=== PATIENT | female | born 1955 | race Caucasian/White ===

== ENCOUNTER 2017-11-09 10:40 | Emergency (ER) | payer MEDICARE, OTHER ==
[~2017-11-09] VITALS: Ht 162.6 cm; Wt 108.9 kg
--- NOTE | 2017-11-09 11:23 | PHYS DOC ---
Past History Past Medical History: COPD, Hypertension Past Surgical History: No Surgical History Smoking: Non-smoker Alcohol Use: None Drug Use: None Adult General Chief Complaint Chief Complaint: SHORTNESS OF BREATH HPI HPI 62-year-old female patient state she has history of COPD related to asthma without smoking and is to take 40 mg of prednisone daily with stable condition with her primary care physician suggested that she cannot take prednisone for a long time and stopped her medication about 4 months ago. Patient complaining of shortness of breath since stopping prednisone. Patient was seen symptoms hospital 1 week ago and treated with one course of Medrol Dosepak with improvement of her condition at or shortness of breath increased for the last 4 or 5 days after she finished the medication. Patient complaining of dry cough and shortness of breath that getting worse with activity and during episodes of cough without chest pain, fever and chills, nausea and vomiting, diarrhea and constipation. Patient states she used her last dose of inhaler today and needs more inhaler. Patient asking for long-term prednisone treatment. Patient was very anxious and agitated upon arrival to ER. Review of Systems Review of Systems Constitutional: Denies fever or chills [] Eyes: Denies change in visual acuity, redness, or eye pain [] HENT: Denies nasal congestion or sore throat [] Respiratory: Reports cough and shortness of breath [] Cardiovascular: No additional information not addressed in HPI [] GI: Denies abdominal pain, nausea, vomiting, bloody stools or diarrhea [] : Denies dysuria or hematuria [] Musculoskeletal: Denies back pain or joint pain [] Integument: Denies rash or skin lesions [] Neurologic: Denies headache, focal weakness or sensory changes [] Endocrine: Denies polyuria or polydipsia [] All other systems were reviewed and found to be within normal limits, except as documented in this note. Current Medications Current Medications Current Medications Medications (Trade) Dose Ordered Sig/Segundo Start Time Stop Time Status Last Admin Dose Admin Albuterol/ Ipratropium (Duoneb) 3 ml 1X ONCE 11/09/17 11:45 11/09/17 11:46 Methylprednisolone Sodium Succinate (SOLU-Medrol 125MG VIAL) 125 mg 1X ONCE 11/09/17 11:45 11/09/17 11:46 Allergies Allergies Allergies Coded Allergies Type Severity Reaction Last Updated Verified penicillin G Allergy Intermediate 11/09/17 Yes Physical Exam Physical Exam Constitutional: Well developed, well nourished, mild distress, non-toxic appearance, anxious. [] HENT: Normocephalic, atraumatic, bilateral external ears normal, oropharynx moist, no oral exudates, nose normal. [] Eyes: PERRLA, EOMI, conjunctiva normal, no discharge. [] Neck: Normal range of motion, no tenderness, supple, no stridor. [] Cardiovascular: Mild tachycardia, no murmur [] Lungs & Thorax: Mild wheezing and rhonchi bilaterally, mild respiratory distress Abdomen: Bowel sounds normal, soft, no tenderness, no masses, no pulsatile masses. [] Skin: Warm, dry, no erythema, no rash. [] Back: No tenderness, no CVA tenderness. [] Extremities: No tenderness, no cyanosis, no clubbing, ROM intact, no edema. [] Neurologic: Alert and oriented X 3, normal motor function, normal sensory function, no focal deficits noted. [] Psychologic: Affect normal, judgement normal, anxious and agitated, denies suicidal and homicidal ideation Current Patient Data Vital Signs Vital Signs Date Time Temp Pulse Resp B/P (MAP) Pulse Ox O2 Delivery O2 Flow Rate FiO2 11/09/17 11:04 98.3 104 18 95 Room Air EKG EKG [] Radiology/Procedures Radiology/Procedures [Chest x-ray was unremarkable] Course & Med Decision Making Course & Med Decision Making Pertinent Labs and Imaging studies reviewed. (See chart for details) Naren of patient in ER showed 62-year-old female patient with history of COPD without home oxygen complaining of increasing shortness of breath after stopping the prednisone. Patient also asking for prescription of Ventolin. Patient had agitation and anxiety with wheezing after treatment with nebulizer treatment and Solu-Medrol IM. Labs was unremarkable. Plan discharge patient home with diagnosis of COPD exacerbation. Patient already had a course of antibiotic and did not have sign of infection therefore plan to give prescription for Ventolin and Medrol Dosepak. [] Dragon Disclaimer Dragon Disclaimer This electronic medical record was generated, in whole or in part, using a voice recognition dictation system. Departure Departure: Impression: Primary Impression: COPD exacerbation Additional Impression: Anxiety Disposition: 01 HOME, SELF-CARE (at 12:30) Condition: IMPROVED Referrals: ABHIJEET BAR DO (PCP) Patient Instructions: Chronic Obstructive Pulmonary Disease Exacerbation Additional Instructions: Follow-up with your primary care physician in 3-5 days Return to ER if not feeling better Scripts Albuterol Sulfate (VENTOLIN HFA INHALER) 18 Gm Hfa.aer.ad 2 PUFF IH PRN Q4HRS Y for FOR ASTHMA, #1 INHALER 0 Refills Prov: JASMEET RODRIGUEZ MD 11/09/17 Methylprednisolone (MEDROL) 4 Mg Tab.ds.pk 1 PKG PO UD, #1 PKG Prov: JASMEET RODRIGUEZ MD 11/09/17 Problem Qualifiers JASMEET RODRIGUEZ MD Nov 09, 2017 11:23
[2017-11-09] MEDS ORDERED: methylPREDNISolone SOD SUCC PF 125 MG/2 ML VIAL. IV ONE (11:45)
[2017-11-09] MEDS ORDERED: IPRATRPIUM/ALBUTEROL 0.5/2.5MG 3 ML NEBU. NEB ONE (11:45)
[2017-11-09 11:50] LABS: BASO # 0.1 x10^3/uL (0.0-0.2); BASO % 1 % (0-3); EOS # 0.9 x10^3/uL (0.0-0.7); EOS % 10 % (0-3); HEMATOCRIT 42.9 % (36.0-47.0); HEMOGLOBIN 14.1 g/dL (12.0-15.5); LYMPH # 1.6 x10^3/uL (1.0-4.8); LYMPH % 18 % (24-48); MEAN CORPUSCULAR HEMOGLOBIN 26 pg (25-35); MEAN CORPUSCULAR HGB CONC 33 g/dL (31-37); MEAN CORPUSCULAR VOLUME 81 fL (79-100); MONO # 0.6 x10^3/uL (0.0-1.1); MONO % 7 % (0-9); NEUT # 5.7 x10^3uL (1.8-7.7); NEUT % 64 % (31-73); PLATELET COUNT 318 x10^3/uL (140-400); RED BLOOD COUNT 5.33 x10^6/uL (3.50-5.40); RED CELL DISTRIBUTION WIDTH 14.7 % (11.5-14.5); WHITE BLOOD COUNT 8.9 x10^3/uL (4.0-11.0)
--- NOTE | 2017-11-09 12:00 | RAD ---
PA and lateral chest radiographs 11/09/2017 Clinical history: Shortness of breath. PA and lateral digital radiographs of the chest were obtained. Comparison study is dated 01/30/2015. The cardiac silhouette is normal in size. The thoracic aorta is minimally tortuous. Atherosclerotic calcification of the thoracic aorta is seen. No acute pulmonary infiltrate is noted. No pneumothorax or pleural effusion is seen. Degenerative changes are seen involving the thoracic spine. Impression: No acute abnormality seen.
[2017-11-09 12:04] LABS: ALBUMIN 3.8 g/dL (3.4-5.0); CALCIUM 9.4 mg/dL (8.5-10.1); CREATININE 0.7 mg/dL (0.6-1.0); GFR 84.8; POTASSIUM 4.2 mmol/L (3.5-5.1); TOTAL BILIRUBIN 0.5 mg/dL (0.2-1.0); TOTAL PROTEIN 7.7 g/dL (6.4-8.2)
[2017-11-09] MEDS ORDERED: ALBU18HF IH (12:33)
[2017-11-09] MEDS ORDERED: METH4TAB2 PO (12:33)
[2017-11-09 12:42] VITALS: BP 134/80
== END 2017-11-09 14:14 | disposition home or self-care (01) ==
LOC: ER 10:40
DX: J44.1 Chronic obstructive pulmonary disease with (acute) exacerbation (principal); F41.9 Anxiety disorder, unspecified; I10 Essential (primary) hypertension; Z88.0 Allergy status to penicillin
CPT/HCPCS: 36415; 71020; 80053; 83880; 84484; 85025; 94640; 96374; 99285; J2930; J7620

== ENCOUNTER 2017-12-02 11:02 | Emergency (ER) | payer MEDICARE, OTHER ==
[~2017-12-02] VITALS: Ht 167.6 cm; Wt 81.2 kg
[~2017-12-02 11:02] MED LIST: ALBU18HF IH; METH4TAB2 PO
--- NOTE | 2017-12-02 11:17 | PHYS DOC ---
Past History Past Medical History: COPD, Hypertension Past Surgical History: No Surgical History Smoking: Non-smoker Alcohol Use: None Drug Use: None Adult General Chief Complaint Chief Complaint: shortness of breath HPI HPI Patient is a 62 year old F who presents with shortness of breath over the past month. She denies any other associated symptoms. She feels that her symptoms are worse with activity and improved with rest. She does have a history of COPD but is not currently following with primary care doctor because she believes all the doctors are "stupid". Review of Systems Review of Systems Constitutional: Denies fever or chills [] Eyes: Denies change in visual acuity, redness, or eye pain [] HENT: Denies nasal congestion or sore throat [] Respiratory: Negative except history of present illness Cardiovascular: No additional information not addressed in HPI [] GI: Denies abdominal pain, nausea, vomiting, bloody stools or diarrhea [] : Denies dysuria or hematuria [] Musculoskeletal: Denies back pain or joint pain [] Integument: Denies rash or skin lesions [] Neurologic: Denies headache, focal weakness or sensory changes [] Endocrine: Denies polyuria or polydipsia [] All other systems were reviewed and found to be within normal limits, except as documented in this note. Family History Family History No pertinent medical history was reported Current Medications Current Medications Current medications were reviewed Allergies Allergies Allergies Coded Allergies Type Severity Reaction Last Updated Verified penicillin G Allergy Intermediate 11/09/17 Yes Physical Exam Physical Exam Constitutional: Well developed, well nourished, no acute distress, non-toxic appearance. [] HENT: Normocephalic, atraumatic, Eyes: EOMI, conjunctiva normal, no discharge. [] Neck: Normal range of motion, no tenderness, supple, no stridor. [] Cardiovascular:Heart rate regular rhythm, Lungs & Thorax: Diminished breath sounds bilaterally with prolonged expiratory phase. Minimal wheezing noted Abdomen: Bowel sounds normal, soft, no tenderness, no masses, no pulsatile masses. [] Skin: Warm, dry, no erythema, no rash. [] Back: No tenderness, no CVA tenderness. [] Extremities: No tenderness, no cyanosis, no clubbing, ROM intact, no edema. [] Neurologic: Alert and oriented X 3, normal motor function, normal sensory function, no focal deficits noted. [] Psychologic: Affect normal, judgement normal, mood normal. [] Current Patient Data Vital Signs Vital Signs Date Time Temp Pulse Resp B/P (MAP) Pulse Ox O2 Delivery O2 Flow Rate FiO2 12/02/17 11:21 99.1 95 22 99 Room Air EKG EKG [] Radiology/Procedures Radiology/Procedures Labs and imaging were declined Course & Med Decision Making Course & Med Decision Making Pertinent Labs and Imaging studies reviewed. (See chart for details) [] Dragon Disclaimer Dragon Disclaimer This electronic medical record was generated, in whole or in part, using a voice recognition dictation system. Departure Departure: Impression: Primary Impression: COPD exacerbation Disposition: HOME, SELF-CARE Condition: STABLE Referrals: PCPCONNER (PCP) Patient Instructions: Bronchitis Additional Instructions: Bonnie was seen in the emergency department for cough and shortness of breath. No emergency medical condition was found on history or physical exam. She was given a prescription for an oral steroid to be used only if her symptoms worsen. She is advised follow-up with her primary care doctor in the next 3-5 days for further management. Scripts Methylprednisolone (MEDROL) 4 Mg Tab.ds.pk 1 PKG PO UD, #1 PKG Prov: BARBARA ENNIS MD 12/02/17 BARBARA ENNIS MD Dec 02, 2017 11:17
[2017-12-02] MEDS ORDERED: METH4TAB2 PO (12:24)
[2017-12-02 12:36] VITALS: BP 152/80
== END 2017-12-02 12:38 | disposition home or self-care (01) ==
LOC: ER 11:02
DX: J44.1 Chronic obstructive pulmonary disease with (acute) exacerbation (principal); I10 Essential (primary) hypertension; Z88.0 Allergy status to penicillin
CPT/HCPCS: 99283

== ENCOUNTER 2018-05-08 11:28 | Emergency (ER) | payer MEDICARE, OTHER ==
[~2018-05-08] VITALS: Ht 152.4 cm; Wt 77.1 kg
[2018-05-08] MEDS ORDERED: DIPHTH,PERTUSS(ACELL),TET TOX 0.5 ML DISP.SYRIN. VAX IM ONE (11:45)
[2018-05-08] MEDS ORDERED: CLIN300C8 PO (11:54)
--- NOTE | 2018-05-08 11:56 | PHYS DOC ---
Past History Past Medical History: COPD, Hypertension Past Surgical History: No Surgical History Smoking: Non-smoker Alcohol Use: None Drug Use: None Adult General Chief Complaint Chief Complaint: ANIMAL BITE [facility] HPI Patient is a 63-year-old female who presents for evaluation after a cat bite which she sustained around 3 AM today. She states that she is to house that were fighting and she tried to break it up and she was been on the left forearm. She states that the cats stay inside the house and has been behaving normally and although they are not up-to-date with her immunizations she does not want to be treated for rabies. I explained to her that even house cats without any symptoms can potentially have rabies and she expresses verbal understanding but does not want to be vaccinated. She thinks that her last tetanus shot was about 5 years ago and is willing to accept this today. She has no other complaints this time. She has no pain with moving the left hand, wrist , forearm or elbow. She did not fall or hurt anything else. She is alert and oriented 4, calm, appears to be no distress.. Review of Systems Review of Systems Constitutional: Denies fever or chills [] Eyes: Denies change in visual acuity, redness, or eye pain [] HENT: Denies nasal congestion or sore throat [] Respiratory: Denies cough or shortness of breath [] Cardiovascular: No additional information not addressed in [facility] [] GI: Denies abdominal pain, nausea, vomiting, bloody stools or diarrhea [] : Denies dysuria or hematuria [] Musculoskeletal: Denies back pain[] left forearm/wrist cat bite/contusion Integument: Denies rash or skin lesions [] Neurologic: Denies headache, focal weakness or sensory changes [] Endocrine: Denies polyuria or polydipsia [] All other systems were reviewed and found to be within normal limits, except as documented in this note. Allergies Allergies Allergies Coded Allergies Type Severity Reaction Last Updated Verified penicillin G Allergy Intermediate 11/09/17 Yes Physical Exam Physical Exam Constitutional: Well developed, well nourished, no acute distress, non-toxic appearance. [] HENT: Normocephalic, atraumatic, bilateral external ears normal, oropharynx moist, no oral exudates, nose normal. [] Eyes: PERRLA, EOMI, conjunctiva normal, no discharge. [] Neck: Normal range of motion, no tenderness, supple, no stridor. [] Cardiovascular:Heart rate regular rhythm, no murmur [] Lungs & Thorax: Bilateral breath sounds clear to auscultation [] Abdomen: Bowel sounds normal, soft, no tenderness, no masses, no pulsatile masses. [] Skin: Warm, dry, no erythema, no rash. [] Back: No tenderness, no CVA tenderness. [] Extremities: no cyanosis, no clubbing, ROM intact, no edema. [] +contusion to left distal forearm/wrist, no open wound, no obvious puncture wound, no bleeding , + ecchymosis, no bony tenderness, FROM present Neurologic: Alert and oriented X 3, normal motor function, normal sensory function, no focal deficits noted. [] Psychologic: Affect normal, judgement normal, mood normal. [] EKG EKG [] Radiology/Procedures Radiology/Procedures [] Course & Med Decision Making Course & Med Decision Making Pertinent Labs and Imaging studies reviewed. (See chart for details) Explained to the patient that although her cancer behaving normally and live inside there is a remote possibility could be rabies positive for showing overt typical signs of rabies. She expresses verbal understanding but does not will be treated for rabies. Advised the patient to get her cats up-to-date with rabies vaccination. The atient will go home with a prescription for clindamycin and will follow up with her primary care physician in the next 2-3 days. Dragon Disclaimer Dragon Disclaimer This electronic medical record was generated, in whole or in part, using a voice recognition dictation system. Departure Departure: Impression: Primary Impression: Cat bite Additional Impression: Contusion of forearm, left Disposition: 01 HOME, SELF-CARE Condition: STABLE Referrals: LAVONNE AVILES MD (PCP) Patient Instructions: Animal Bite, Rabies Additional Instructions: Take the prescribed antibiotics as directed. Follow-up with your primary care physician in the next 2-3 days. Rabies vaccine and treatment was offered but declined today. If you change your mind please return. Return to the ER for new or worsening symptoms Scripts Clindamycin Hcl (CLINDAMYCIN HCL) 300 Mg Capsule 1 CAP PO TID for 10 Days, #30 CAP Prov: CAIN HERNANDEZ DO 05/08/18 Problem Qualifiers CAIN HERNANDEZ DO May 08, 2018 11:56
[2018-05-08 12:02] VITALS: BP 151/81
== END 2018-05-08 12:05 | disposition home or self-care (01) ==
LOC: ER 11:28
DX: S51.852A Open bite of left forearm, initial encounter (principal); S50.12XA Contusion of left forearm, initial encounter; J44.9 Chronic obstructive pulmonary disease, unspecified; I10 Essential (primary) hypertension; Z88.0 Allergy status to penicillin; W55.01XA Bitten by cat, initial encounter; Y93.89 Activity, other specified; Y99.8 Other external cause status; Y92.89 Other specified places as the place of occurrence of the external cause
CPT/HCPCS: 90471; 90715; 99283-25

== ENCOUNTER 2019-06-25 10:07 | Emergency (ER) | payer OTHER ==
[~2019-06-25] VITALS: Ht 152.4 cm; Wt 77.1 kg
[~2019-06-25 10:07] MED LIST changes: -ALBU18HF IH; +ALBU2.5V8 IH; +CLIN300C8 PO
--- NOTE | 2019-06-25 10:26 | PHYS DOC ---
Past History Past Medical History: COPD, GERD, Hypertension Past Surgical History: Tonsillectomy, Other Smoking: Non-smoker Alcohol Use: None Drug Use: None Adult General Chief Complaint Chief Complaint: SHORTNESS OF BREATH HPI HPI Patient is a 64-year-old female presents with shortness of breath. Symptoms st arted approximately 2 weeks ago that have become worse over the past several days. She has had no improvement with her home long-acting as well as short acting beta agonist inhalers. She does have a known history of COPD. Was never a smoker. Denies any fever. Reports that she has had a cough that has not been productive. She notes there has been a rattle in her chest that has gone away. She reports steroids normally improve these symptoms. Reports increasing shortness of breath with laying down. Also increasing shortness of breath with exertion. Denies any chest pain or palpitations. Denies any extremity swelling. Denies any recent travel no trauma, no stasis, no known hypercoagulable state.[] Review of Systems Review of Systems Constitutional: Denies fever or chills [] Eyes: Denies change in visual acuity, redness, or eye pain [] HENT: Denies nasal congestion or sore throat [] Respiratory: See history of present illness[] Cardiovascular: No chest pain or palpitations[] GI: Denies abdominal pain, nausea, vomiting, bloody stools or diarrhea [] : Denies dysuria or hematuria [] Musculoskeletal: Denies back pain or joint pain [] Integument: Denies rash or skin lesions [] Neurologic: Denies headache, focal weakness or sensory changes [] Endocrine: Denies polyuria or polydipsia [] All other systems were reviewed and found to be within normal limits, except as documented in this note. Allergies Allergies Allergies Coded Allergies Type Severity Reaction Last Updated Verified penicillin G Allergy Intermediate 11/09/17 Yes Physical Exam Physical Exam Constitutional: Well developed, well nourished, no acute distress, non-toxic appearance. [] HENT: Normocephalic, atraumatic, bilateral external ears normal, oropharynx moist, no oral exudates, nose normal. [] Eyes: PERRLA, EOMI, conjunctiva normal, no discharge. [] Neck: Normal range of motion, no tenderness, supple, no stridor. [] Cardiovascular:Heart rate is tachycardic with a regular rhythm, no murmur [] Lungs & Thorax: Diminished throughout[] Abdomen: Bowel sounds normal, soft, no tenderness, no masses, no pulsatile masses. [] Skin: Warm, dry, no erythema, no rash. [] Back: No tenderness, no CVA tenderness. [] Extremities: No tenderness, no cyanosis, no clubbing, ROM intact, no edema. [] Neurologic: Alert and oriented X 3, normal motor function, normal sensory function, no focal deficits noted. [] Psychologic: Affect normal, judgement normal, mood normal. [] EKG EKG EKG shows a sinus tachycardia at 109 bpm, normal axis, QTC of 411 ms, no ST elevation. Nonspecific ST-T wave changes. Interpreted by me at 1040[] Radiology/Procedures Radiology/Procedures PROCEDURE: CHEST PA & LATERAL CHEST PA LATERAL History: Shortness of breath Comparison: November 09, 2017 Findings: No consolidation or pleural effusion. Normal heart size. Impression: 1. No acute cardiopulmonary process.[] Course & Med Decision Making Course & Med Decision Making Pertinent Labs and Imaging studies reviewed. (See chart for details) ED course: Patient arrived, was placed in bed, and tolerated exam well. Patient refused IV access so medication was administered orally. Her lungs improved significantly after the breathing treatment. Her heart rate improved to the 80s. She was speaking in full sentences. She was transported to and from radiology with any complications. After the return of laboratory and imaging findings, these were discussed with the patient voiced understanding. All questions were answered. She was discharged in improved condition. Medical decision making: This appears to be a COPD exacerbation. There is no evidence pneumonia, pneumothorax, pulmonary embolism, nor acute coronary syndrome.[] Dragon Disclaimer Dragon Disclaimer This electronic medical record was generated, in whole or in part, using a voice recognition dictation system. Departure Departure: Impression: Primary Impression: COPD exacerbation Disposition: HOME, SELF-CARE Condition: IMPROVED Referrals: LAVONNE AVILES MD (PCP) Follow-up in 2 days Patient Instructions: Chronic Obstructive Pulmonary Disease Exacerbation Additional Instructions: Follow-up with your regular doctor in 2 days. Return to the ER if worsening difficulty breathing or any other concerns. Scripts Ipratropium Shunk (ATROVENT HFA) 12.9 Gm Hfa.aer.ad 2 PUFF IH QID for COPD, #12.9 GM 0 Refills Prov: LUCIANA GE DO 06/25/19 Prednisone (PREDNISONE) 50 Mg Tablet 1 TAB PO DAILY for INFLAMMATION, #5 TAB Prov: LUCIANA GE DO 06/25/19 Albuterol Sulfate (VENTOLIN HFA INHALER) 18 Gm Hfa.aer.ad 2 PUFF IH PRN Q4HRS PRN for FOR ASTHMA, #1 INHALER 0 Refills Prov: LUCIANA GE DO 06/25/19 LUCIANA GE DO Jun 25, 2019 10:26
[2019-06-25] MEDS ORDERED: methylPREDNISolone SOD SUCC PF 125 MG/2 ML VIAL. IV ONE (10:30)
[2019-06-25] MEDS ORDERED: IPRATRPIUM/ALBUTEROL 0.5/2.5MG 3 ML NEBU. NEB ONE (10:45)
[2019-06-25] MEDS ORDERED: predniSONE 10 MG TABLET PO ONE (10:50)
[2019-06-25 11:11] LABS: ALBUMIN 3.9 g/dL (3.4-5.0); ALBUMIN/GLOBULIN RATIO 1.1 (1.0-1.7); CREATININE 0.8 mg/dL (0.6-1.0); GFR 72.2; POTASSIUM 3.9 mmol/L (3.5-5.1); TOTAL BILIRUBIN 0.7 mg/dL (0.2-1.0); TOTAL PROTEIN 7.5 g/dL (6.4-8.2)
[2019-06-25 11:13] VITALS: BP 140/81
--- NOTE | 2019-06-25 11:17 | RAD ---
CHEST PA LATERAL History: Shortness of breath Comparison: November 09, 2017 Findings: No consolidation or pleural effusion. Normal heart size. Impression: 1. No acute cardiopulmonary process. Electronically signed by: Remington Cruz DO (06/25/2019 11:14 AM) [id number]
[2019-06-25] MEDS ORDERED: PRED50TA PO (11:42)
[2019-06-25] MEDS ORDERED: ALBU2.5V8 IH (11:42)
[2019-06-25] MEDS ORDERED: IPRA12.9 IH (11:42)
--- NOTE | 2019-06-25 14:52 | EKG ---
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
== END 2019-06-25 11:46 | disposition home or self-care (01) ==
LOC: ER 10:07
DX: J44.1 Chronic obstructive pulmonary disease with (acute) exacerbation (principal); K21.9 Gastro-esophageal reflux disease without esophagitis; I10 Essential (primary) hypertension; Z88.0 Allergy status to penicillin
CPT/HCPCS: 36415; 71046; 80053; 83880; 84484; 85379; 93005; 94640; 99285; J7512; J7620

== ENCOUNTER 2019-08-16 10:11 | Emergency (ER) | payer OTHER ==
[~2019-08-16] VITALS: Ht 152.4 cm; Wt 71.7 kg
[~2019-08-16 10:11] MED LIST changes: +IPRA12.9 IH; +PRED50TA PO
[2019-08-16 10:27] VITALS: BP 161/75
--- NOTE | 2019-08-16 10:36 | PHYS DOC ---
Past History Past Medical History: COPD, Diabetes, GERD, Hypertension Past Surgical History: Tonsillectomy, Other Smoking: Non-smoker Alcohol Use: None Drug Use: None Adult General Chief Complaint Chief Complaint: COUGH HPI HPI Patient is a 64-year-old female who presents with complaint of productive cough for the last few days. She does have history of COPD and is wanting to make sure that it is not turning into a pneumonia. She denies any fever or chest pain. She also denies any shortness of breath. Patient states that she also has purulent nasal discharge for the last few days. Patient states that nothing is improving her symptoms.[] Review of Systems Review of Systems Constitutional: Denies fever or chills [] HENT: Positive nasal congestion[] Respiratory: Positive productive cough without shortness of breath [] Cardiovascular: No additional information not addressed in HPI [] Neurologic: Denies headache, focal weakness or sensory changes [] Allergies Allergies Allergies Coded Allergies Type Severity Reaction Last Updated Verified penicillin G Allergy Intermediate 11/09/17 Yes Physical Exam Physical Exam Constitutional: Well developed, well nourished, no acute distress, non-toxic appearance. [] Cardiovascular:Heart rate regular rhythm, no murmur [] Lungs & Thorax: Fine rhonchi are noted bilaterally to auscultation [] Skin: Warm, dry, no erythema, no rash. [] Neurologic: Alert and oriented X 3, no focal deficits noted. [] Current Patient Data Vital Signs Vital Signs Date Time Temp Pulse Resp B/P (MAP) Pulse Ox O2 Delivery O2 Flow Rate FiO2 08/16/19 10:27 98.1 83 18 98 Room Air EKG EKG [] Radiology/Procedures Radiology/Procedures [] Course & Med Decision Making Course & Med Decision Making Pertinent Labs and Imaging studies reviewed. (See chart for details) [] Dragon Disclaimer Dragon Disclaimer This electronic medical record was generated, in whole or in part, using a voice recognition dictation system. Departure Departure: Impression: Primary Impression: Bronchitis Disposition: 01 HOME, SELF-CARE Condition: STABLE Referrals: BARBARA CASILLAS MD (PCP) Patient Instructions: Acute Bronchitis Scripts Hydrocodone/Chlorphen Polis (HYDROCODONE-CHLORPHENIRAM SUSP) 5 Ml Evonne.er.12h 5 ML PO PRN Q12HR PRN for COUGH, #60 ML 0 Refills Prov: MEDARDO JONES Jr. DO 08/16/19 Azithromycin (ZITHROMAX) 250 Mg Tablet 1 PKG PO UD for infection, #6 TAB Prov: MEDARDO JONES Jr. DO 08/16/19 MEDARDO JONES Jr. DO Aug 16, 2019 10:36
[2019-08-16] MEDS ORDERED: HYDR5SUS PO (11:18)
[2019-08-16] MEDS ORDERED: AZIT250T PO (11:18)
--- NOTE | 2019-08-16 11:24 | RAD ---
CHEST PA LATERAL History: Cough Comparison: 06/25/2019 to the chest x-ray exam. Findings: Frontal and lateral views of chest were obtained. The cardiomediastinal silhouette is normal. Pulmonary vasculature is normal. The lungs are clear. No pleural effusion or pneumothorax is seen. There is no acute bone abnormality. IMPRESSION: No acute cardiopulmonary process. Electronically signed by: Edmund Jaramillo MD (08/16/2019 11:21 AM) [facility]
[2019-08-16] MEDS ORDERED: AZITHROMYCIN 250 MG TABLET. PO ONE (11:45)
== END 2019-08-16 11:26 | disposition home or self-care (01) ==
LOC: ER 10:11
DX: J44.9 Chronic obstructive pulmonary disease, unspecified (principal); E11.9 Type 2 diabetes mellitus without complications; K21.9 Gastro-esophageal reflux disease without esophagitis; I10 Essential (primary) hypertension; Z90.89 Acquired absence of other organs; Z88.0 Allergy status to penicillin
CPT/HCPCS: 71046; 99284; J0456

== ENCOUNTER 2019-11-29 13:35 | Emergency (ER) | payer OTHER ==
[~2019-11-29] VITALS: Ht 152.4 cm; Wt 71.7 kg
[~2019-11-29 13:35] MED LIST changes: +AZIT250T PO; +HYDR5SUS PO
--- NOTE | 2019-11-29 14:31 | RAD ---
CHEST PA LATERAL History: Cough for a week Comparison: None. Findings: Frontal and lateral views of the chest were obtained. The cardiomediastinal silhouette is normal. Pulmonary vasculature is normal. The lungs are clear. No pleural effusion or pneumothorax is seen. There is no acute bone abnormality. IMPRESSION: No acute cardiopulmonary process. Electronically signed by: Edmund Jaramillo MD (11/29/2019 2:28 PM) [facility]
--- NOTE | 2019-11-29 14:37 | PHYS DOC ---
Past History Past Medical History: COPD, Diabetes, GERD, Hypertension Past Surgical History: Tonsillectomy, Other Smoking: Non-smoker Alcohol Use: None Drug Use: None Adult General Chief Complaint Chief Complaint: COUGH HPI HPI Patient is a 64-year-old female who presented to ER today for evaluation of cough for over 2 weeks. Patient is a smoker, she denies any fever. She continues to smoke. Patient denies any chest pain, no abdominal pain, no nausea vomiting. She has history hypertension, she had not taken her medication today. All other ROS is negative unless otherwise noted in HPI Review of Systems Review of Systems See above Allergies Allergies Allergies Coded Allergies Type Severity Reaction Last Updated Verified penicillin G Allergy Intermediate 11/09/17 Yes Physical Exam Physical Exam See above Constitutional: Well developed, well nourished, no acute distress, non-toxic appearance. [] HENT: Normocephalic, atraumatic, bilateral external ears normal, oropharynx moist, no oral exudates, nose normal. [] Eyes: PERRLA, EOMI, conjunctiva normal, no discharge. [] Neck: Normal range of motion, no tenderness, supple, no stridor. [] Cardiovascular:Heart rate regular rhythm, no murmur [] Lungs & Thorax: mild expiratory wheezing on examination Abdomen: Bowel sounds normal, soft, no tenderness, no masses, no pulsatile masses. [] Skin: Warm, dry, no erythema, no rash. [] Back: No tenderness, no CVA tenderness. [] Extremities: No tenderness, no cyanosis, no clubbing, ROM intact, no edema. [] Neurologic: Alert and oriented X 3, normal motor function, normal sensory functi on, no focal deficits noted. [] Psychologic: Affect normal, judgement normal, mood normal. [] Current Patient Data Vital Signs Vital Signs Date Time Temp Pulse Resp B/P (MAP) Pulse Ox O2 Delivery O2 Flow Rate FiO2 11/29/19 13:54 98.0 89 18 98 Room Air EKG EKG [] Radiology/Procedures Radiology/Procedures [][address] [address] IMAGING REPORT Signed PATIENT: RAUL KNOWLES ACCOUNT: [id number] : 1955 LOCATION: ER AGE: 64 SEX: F EXAM STATUS: REG ER ORD. PHYSICIAN: BARBARA CUNHA DO REASON: COUGH FOR A WEEK PROCEDURE: CHEST PA & LATERAL CHEST PA LATERAL History: Cough for a week Comparison: None. Findings: Frontal and lateral views of the chest were obtained. The cardiomediastinal silhouette is normal. Pulmonary vasculature is normal. The lungs are clear. No pleural effusion or pneumothorax is seen. There is no acute bone abnormality. IMPRESSION: No acute cardiopulmonary process. Electronically signed by: Edmund Zamorano MD (11/29/2019 2:28 PM) [facility] DICTATED AND SIGNED BY: EDMUND ZAMORANO MD DATE: 11/29/19 1428 CC: PCP,CONNER; BARBARA CUNHA DO ~ Course & Med Decision Making Course & Med Decision Making Pertinent Labs and Imaging studies reviewed. (See chart for details) She is a 64-year-old female who is a smoker, presented to ER today for 2 weeks history of cough, patient chest x-ray did not show pneumonia, she is diagnosed with bronchitis. Patient will be discharged home with cough medication, steroids, albuterol inhaler, and Zithromax. Dragon Disclaimer Dragon Disclaimer This electronic medical record was generated, in whole or in part, using a voice recognition dictation system. Departure Departure: Impression: Primary Impression: Bronchitis Disposition: HOME, SELF-CARE Condition: STABLE Referrals: [facility] (PCP) PLEASE FOLLOW UP WITH YOUR DOCTOR ON TUESDAY FOR REEVALUATION. RETURN IF YOU HAVE CHEST PAIN OR WORSEN SHORTNESS OF AIR. Patient Instructions: Acute Bronchitis Scripts Promethazine HCl/Codeine (Prometh-Codein 6.25-10 mg/5 ml) 5 Ml Syrup 5 ML PO PRN Q6HRS PRN for cough MDD 30 Milliliter(s), #120 ML 0 Refills Prov: BARBARA CUNHA DO 11/29/19 Albuterol Sulfate (PROAIR HFA INHALER) 8.5 Gm Hfa.aer.ad 1 PUFF INH PRN Q6HRS PRN for SHORTNESS OF BREATH for 21 Days, #1 INHALER 0 Refills Prov: BARBARA CUNHA DO 11/29/19 Albuterol Sulfate (PROAIR HFA INHALER) 8.5 Gm Hfa.aer.ad 2 PUFF IH PRN Q4-6HRS PRN for wheezing for 21 Days, #1 INHALER 0 Refills Prov: BARBARA CNUHA DO 11/29/19 Prednisone (PREDNISONE) 20 Mg Tablet 1 TAB PO DAILY for BRONCHITIS for 10 Days, #10 TAB Prov: BARBARA CUNHA DO 11/29/19 Azithromycin (ZITHROMAX) 250 Mg Tablet 1 PKG PO UD for BRONCHITIS, #6 TAB Prov: BARBARA CUNHA DO 11/29/19 BARBARA CUNHA DO Nov 29, 2019 14:37
[2019-11-29 15:16] VITALS: BP 167/86
[2019-11-29] MEDS ORDERED: PRED20TA PO (15:23)
[2019-11-29] MEDS ORDERED: ALBU2.5V8 IH (15:23)
[2019-11-29] MEDS ORDERED: PROM5SYR2 PO (15:23)
[2019-11-29] MEDS ORDERED: ALBU2.5V8 INH (15:23)
[2019-11-29] MEDS ORDERED: AZIT250T PO (15:23)
== END 2019-11-29 15:31 | disposition home or self-care (01) ==
LOC: ER 13:35
DX: J44.9 Chronic obstructive pulmonary disease, unspecified (principal); E11.9 Type 2 diabetes mellitus without complications; K21.9 Gastro-esophageal reflux disease without esophagitis; I10 Essential (primary) hypertension; Z90.89 Acquired absence of other organs; Z88.0 Allergy status to penicillin
CPT/HCPCS: 71046; 99284

== ENCOUNTER 2020-10-19 14:16 | Emergency (ER) | payer OTHER ==
[~2020-10-19] VITALS: Ht 152.4 cm; Wt 75.0 kg
[~2020-10-19 14:16] MED LIST changes: +ALBU2.5V8 INH; +PRED20TA PO; +PROM5SYR2 PO
[2020-10-19 14:31] VITALS: BP 167/90
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
[2020-10-19] MEDS ORDERED: ACETAMINOPHEN 500 MG TABLET PO ONE (15:00)
--- NOTE | 2020-10-19 15:40 | RAD ---
Right knee 4 views. HISTORY: Fall, patellar pain, trauma 4 views were taken of the right knee. There is mild arthritis with mild spurring in the medial joint compartment and mild joint space narrowing medially. There is no acute fracture. There is no joint effusion. IMPRESSION: 1. Mild arthritis in the right knee. 2. No fracture or other acute osseous abnormality. Electronically signed by: Panda Dalton MD (10/19/2020 3:37 PM) [facility]
--- NOTE | 2020-10-19 16:04 | RAD ---
EXAM: CT Head without IV contrast INDICATION: Reason: FALL, TRAUMA, HEAD PAIN, MIDLINE SPINAL CERVICAL AND THORACIC TANYA / Spl. Instructions: / History: TECHNIQUE: Multi-detector row CT images were obtained of the head without the use of IV contrast. All CT scans performed at this facility utilize dose optimization techniques as appropriate to the exam, including the following: Automated exposure control and adjustment of the mA and/or KV according to patient size (this includes techniques or standardized protocols for targeted exams where dose is indication/reason for exam). COMPARISON: None FINDINGS: BRAIN PARENCHYMA: No evidence of acute intraparenchymal hemorrhage or infarct. No abnormal parenchymal density or mass. VENTRICLES & EXTRA-AXIAL SPACES: Ventricles are within normal limits. Basilar cisterns are patent. No pathologic extra-axial fluid collection or mass. ORBITS: Orbital contents are unremarkable. SINUSES: Visualized paranasal sinuses and mastoid air cells are clear. OSSEOUS & SOFT TISSUES: Calvarium and skull base are intact. IMPRESSION: No acute intracranial pathology. EXAM: CT Cervical Spine without IV contrast INDICATION: Reason: FALL, TRAUMA, HEAD PAIN, MIDLINE SPINAL CERVICAL AND THORACIC TANYA / Spl. Instructions: / History: TECHNIQUE: Multi-detector row CT images were obtained through the cervical spine without the use of IV contrast. Post-processing sagittal and coronal reconstructed images were obtained for interpretation. All CT scans performed at this facility utilize dose optimization techniques as appropriate to the exam, including the following: Automated exposure control and adjustment of the mA and/or KV according to patient size (this includes techniques or standardized protocols for targeted exams where dose is indication/reason for exam) COMPARISON: None FINDINGS: CRANIOCERVICAL JUNCTION: Unremarkable. ALIGNMENT: Alignment is within normal limits. OSSEOUS: No evidence of fracture or bone destruction. DISC SPACES: Mild disc protrusion at C3-C4 and lesser extent C4-C5 minimally flattens the ventral thecal sac but results in no significant central canal stenosis. FACET JOINTS: Unremarkable. SPINAL CANAL: Unremarkable. NEUROFORAMINA: Unremarkable. SOFT TISSUES: Unremarkable. IMPRESSION: Mild cervical spinal degenerative spondylosis. No acute traumatic findings. EXAM: CT Thoracic Spine without IV contrast INDICATION: Reason: FALL, TRAUMA, HEAD PAIN, MIDLINE SPINAL CERVICAL AND THORACIC TANYA / Spl. Instructions: / History: TECHNIQUE: Multi-detector row CT images were obtained through the thoracic spine without the use of IV contrast. Post-processing sagittal and coronal reconstructed images were obtained for interpretation. All CT scans performed at this facility utilize dose optimization techniques as appropriate to the exam, including the following: Automated exposure control and adjustment of the mA and/or KV according to patient size (this includes techniques or standardized protocols for targeted exams where dose is indication/reason for exam). COMPARISON: None FINDINGS: ALIGNMENT: Alignment is within normal limits. OSSEOUS: No evidence of fracture or bone destruction. DISC SPACES: Mild anterior endplate osteophytic spurring and vacuum phenomenon at multiple levels in the thoracic spine with disc space narrowing, compatible with mild degenerative changes. These are most conspicuous between T5-T6 and T11-T12 FACET JOINTS: Unremarkable. SPINAL CANAL: Unremarkable. NEUROFORAMINA: Unremarkable. SOFT TISSUES: Unremarkable. IMPRESSION: No acute traumatic findings in the thoracic spine on CT. Electronically signed by: Flip Moran MD (10/19/2020 4:01 PM) [id number]
== END 2020-10-19 16:47 | disposition home or self-care (01) ==
LOC: ER 14:16
DX: S16.1XXA Strain of muscle, fascia and tendon at neck level, initial encounter (principal); S29.012A Strain of muscle and tendon of back wall of thorax, initial encounter; S80.01XA Contusion of right knee, initial encounter; R51.9 Headache, unspecified; J44.9 Chronic obstructive pulmonary disease, unspecified; K21.9 Gastro-esophageal reflux disease without esophagitis; I10 Essential (primary) hypertension; E11.9 Type 2 diabetes mellitus without complications; Z90.89 Acquired absence of other organs; Z88.0 Allergy status to penicillin; Z59.0 Homelessness; W18.39XA Other fall on same level, initial encounter; Y93.89 Activity, other specified; Y92.89 Other specified places as the place of occurrence of the external cause; Y99.8 Other external cause status
CPT/HCPCS: 70450; 72125; 72128; 73564; 82947; 99285

== ENCOUNTER 2021-02-04 17:06 | Emergency (ER) | payer OTHER ==
[~2021-02-04] VITALS: Ht 152.4 cm; Wt 75.0 kg
[~2021-02-04 17:06] MED LIST changes: -CLIN300C8 PO; +CLIN300C9 PO
[2021-02-04 17:15] VITALS: BP 189/102
--- NOTE | 2021-02-04 17:59 | PHYS DOC ---
Past History Past Medical History: COPD, Diabetes, GERD, Hypertension Past Surgical History: Tonsillectomy, Other Smoking: Non-smoker Alcohol Use: None Drug Use: None General Adult EDM: Chief Complaint: SHORTNESS OF BREATH HPI: HPI: Patient is a s 66-year-old female coming in via EMS for homelessness. Patient states that she was in the homeless [facility] but was required to leave during the day. States she has been outside and is feeling like her COPD is flaring up due to the 66 degree temperature. Patient denies any smoking history, worsening cough, fevers, or other medications. Patient states she has a known history of hypertension but denies any symptoms and has been told she should be on medications but is not taking any. Patient is speaking in full sentences with no tachypnea, no wheezing or respiratory distress. No other complaints Review of Systems: Review of Systems: All other systems within normal limits except for as noted in the HPI Allergies: Allergies: Allergies Coded Allergies Type Severity Reaction Last Updated Verified penicillin G Allergy Intermediate 02/04/21 Yes Physical Exam: PE: Constitutional: Well developed, well nourished, no acute distress, non-toxic parvin earance. [] HENT: Normocephalic, atraumatic, bilateral external ears normal, nose normal. [] Eyes: PERRLA, conjunctiva normal, no discharge. [] Neck: No rigidity, supple, no stridor. [] Cardiovascular: Regular rate and rhythm, brisk cap refill [] Lungs & Thorax: Non labored symmetric respirations, no tachypnea or respiratory distress [] Abdomen: Soft, nondistended. Skin: Warm, dry, no erythema, no rash. [] Back: Unremarkable Extremities: No deformities, range of motion grossly intact, no lower extremity edema [] Neurologic: Alert and oriented X 3, no focal deficits noted. [] Psychologic: Affect normal, judgement normal, mood normal. [] Current Patient Data: Vital Signs: Vital Signs Date Time Temp Pulse Resp B/P (MAP) Pulse Ox O2 Delivery O2 Flow Rate FiO2 02/04/21 17:15 98.2 77 14 189/102 (131) 96 Room Air EKG: EKG: [] Radiology/Procedures: Radiology/Procedures: [] Heart Score: C/O Chest Pain: N/A Risk Factors: Risk Factors: DM, Current or recent (<one month) smoker, HTN, HLP, family history of CAD, obesity. Risk Scores: Score 0 - 3: 2.5% MACE over next 6 weeks - Discharge Home Score 4 - 6: 20.3% MACE over next 6 weeks - Admit for Clinical Observation Score 7 - 10: 72.7% MACE over next 6 weeks - Early Invasive Strategies Course & Med Decision Making: Course & Med Decision Making Patient in no respiratory distress and is primarily here because she does not have access to the homeless [facility]. Speaking in full sentences, O2 sats 96 to 97% on room air. No acute tachypnea, no wheezes, good bilateral breath sounds. Nurse spoke with welding supervisor at homeless facility who says she can go there as long as she arrives before 7 PM which is about 1 hour from now. Patient discharged to [facility]. Blas Disclaimer: Blas Disclaimer: This electronic medical record was generated, in whole or in part, using a voice recognition dictation system. Departure Departure: Impression: Primary Impression: Homelessness Disposition: 01 DC HOME SELF CARE/HOMELESS Condition: STABLE Referrals: [facility] (PCP) Patient Instructions: Chronic Obstructive Pulmonary Disease TIA AVILA MD Feb 04, 2021 17:59
== END 2021-02-04 18:07 | disposition home or self-care (01) ==
LOC: ER 17:06
DX: Z59.0 Homelessness (principal); J44.9 Chronic obstructive pulmonary disease, unspecified; E11.9 Type 2 diabetes mellitus without complications; K21.9 Gastro-esophageal reflux disease without esophagitis; I10 Essential (primary) hypertension; Z88.0 Allergy status to penicillin
CPT/HCPCS: 99283

== ENCOUNTER 2021-02-07 19:55 | Emergency (ER) | payer OTHER ==
[~2021-02-07] VITALS: Ht 152.4 cm; Wt 75.0 kg
[2021-02-07 20:07] VITALS: BP 134/93
[2021-02-07] MEDS ORDERED: CONTRAST GIVEN. MC PRN ×2 (20:30→23:30)
[2021-02-07 20:44] LABS: BASO # 0.1 x10^3/uL (0.0-0.2); BASO % 0 % (0-3); EOS # 0.1 x10^3/uL (0.0-0.7); EOS % 1 % (0-3); HEMATOCRIT 38.2 % (36.0-47.0); HEMOGLOBIN 12.4 g/dL (12.0-15.5); LYMPH # 1.7 x10^3/uL (1.0-4.8); LYMPH % 12 % (24-48); MEAN CORPUSCULAR HEMOGLOBIN 26 pg (25-35); MEAN CORPUSCULAR HGB CONC 33 g/dL (31-37); MEAN CORPUSCULAR VOLUME 81 fL (79-100); MONO # 0.8 x10^3/uL (0.0-1.1); MONO % 6 % (0-9); NEUT % 81 % (31-73); PLATELET COUNT 272 x10^3/uL (140-400); RED BLOOD COUNT 4.69 x10^6/uL (3.50-5.40); RED CELL DISTRIBUTION WIDTH 14.1 % (11.5-14.5); WHITE BLOOD COUNT 13.6 x10^3/uL (4.0-11.0)
[2021-02-07] MEDS ORDERED: MORPHINE SULFATE 2 MG/ML DISP.SYRIN. IV ONE (20:45)
[2021-02-07 20:53] LABS: CALCIUM 9.1 mg/dL (8.5-10.1); CREATININE 0.7 mg/dL (0.6-1.0); GFR 83.7; POTASSIUM 3.8 mmol/L (3.5-5.1)
[2021-02-07 20:59] LABS: ALBUMIN 3.7 g/dL (3.4-5.0); TOTAL BILIRUBIN 0.8 mg/dL (0.2-1.0); TOTAL PROTEIN 7.3 g/dL (6.4-8.2)
[2021-02-07] MEDS ORDERED: IOHEXOL 300 MG/ML 75 ML VIAL. IV ONE (21:00)
[2021-02-07 21:57] LABS: BACTERIA,URINE 0 /HPF (0-FEW); BILIRUBIN,URINE NEG (NEG); CLARITY,URINE CLEAR; COLOR,URINE YELLOW; GLUCOSE,URINE NEG (NEG); NITRITE,URINE NEG (NEG); RBC,URINE OCC /HPF (0-2); UROBILINOGEN,URINE 0.2 mg/dL (0.2 mg/dL); WBC,URINE OCC /HPF (0-4)
--- NOTE | 2021-02-07 21:58 | PHYS DOC ---
Past History Past Medical History: COPD, Diabetes, GERD, Hypertension, Other Additional Past Medical Histor: HERNIA REPAIR (GITA DICKINSON APRN) Past Medical History: Bronchitis, CAD, CHF, COPD, Renal Disease (KENNEY MCCULLOUGH MD) Past Surgical History: Tonsillectomy, Other Additional Past Surgical Histo: R KNEE (GITA DICKINSON APRN) Smoking: Non-smoker Alcohol Use: None Drug Use: None (GITA DICKINSON APRN) Adult General Chief Complaint Chief Complaint: ABDOMINAL PAIN HPI HPI Patient is a 66-year-old female presents to the emergency department via EMS with a chief complaint of abdominal pain at her hernia site. Patient states she has had hernia for many many years however she cannot recall how many years she has had it. Patient states that it used to be much smaller and has progressively become larger. Patient states she has been staying at a local homeless long-term and they have been making her carry heavy suitcases which she believes has caused her hernia to become worse and larger over the past 2 to 3 weeks. Patient reports a 10/10 pain on a 1-10 pain scale. Patient states that she can still manually reduce her hernia but it causes her much pain these days. Patient denies chest pain, shortness of breath, rashes of the skin, recent fever or chills, increased thirst or increased urination, chest congestion or nasal congestion. She denies any other physical complaints or physical concerns. Patient states her only other surgery was a right knee surgery several years ago. Patient states she takes [id number] Motrin for chronic aches and pains, takes omeprazole for gastric reflux disease, states she has a history of diabetes and hypertension stating that no doctors will treat her for these illnesses. Patient denies cigarette smoking, EtOH consumption or illicit drug use. (GITA DICKINSON APRN) Review of Systems Review of Systems 14 body systems of review of systems have been reviewed. See HPI for pertinent positives and negative responses, otherwise all other systems are negative, nonpertinent or noncontributory. (GITA DICKINSON APRN) Current Medications Current Medications Current Medications Medications (Trade) Dose Ordered Sig/Segundo Start Time Stop Time Status Last Admin Dose Admin Info (Do NOT chart on this entry -- for MONITORING) 1 each PRN DAILY PRN 02/07/21 20:30 02/09/21 20:29 Iohexol (Omnipaque 300 Mg/ml) 75 ml 1X ONCE 02/07/21 21:00 02/07/21 21:01 DC 02/07/21 21:17 75 ML Morphine Sulfate (Morphine 2mg Syringe) 2 mg 1X ONCE 02/07/21 20:45 02/07/21 21:14 DC (GITA DICKINSON APRN) Allergies Allergies Allergies Coded Allergies Type Severity Reaction Last Updated Verified penicillin G Allergy Intermediate 02/04/21 Yes (GITA DICKINSON APRN) Physical Exam Physical Exam Constitutional: Well developed, well nourished, no acute distress, non-toxic appearance. Patient ambulatory with EMS to room in no apparent distress. HENT: Patient refused exam Eyes:Patient refused exam Neck: Patient refused exam Cardiovascular: Patient refused exam Lungs & Thorax: Patient refused exam Abdomen: Bowel sounds normal, soft, no pulsatile masses, large umbilical hernia that presents to the 4 o'clock position, reducible manually however patient complains of pain while attempting to reduce hernia. Patient would not allow me to measure the hernia size, a visual estimation would be 10 cm in diameter. Skin intact. Skin: Patient refused exam Back: Patient refused exam Extremities: Patient refused exam Neurologic: Alert and oriented X 3, normal motor function, normal sensory function, no focal deficits noted. Psychologic: Affect normal, judgement normal, mood normal. (GITA DICKINSON APRN) Current Patient Data Vital Signs Vital Signs Date Time Temp Pulse Resp B/P (MAP) Pulse Ox O2 Delivery O2 Flow Rate FiO2 02/07/21 20:07 98.2 93 18 134/93 (107) 96 Room Air Lab Results Laboratory Tests Test 02/07/21 20:30 White Blood Count 13.6 x10^3/uL (4.0-11.0) H Red Blood Count 4.69 x10^6/uL (3.50-5.40) Hemoglobin 12.4 g/dL (12.0-15.5) Hematocrit 38.2 % (36.0-47.0) Mean Corpuscular Volume 81 fL (79-100) Mean Corpuscular Hemoglobin 26 pg (25-35) Mean Corpuscular Hemoglobin Concent 33 g/dL (31-37) Red Cell Distribution Width 14.1 % (11.5-14.5) Platelet Count 272 x10^3/uL (140-400) Neutrophils (%) (Auto) 81 % (31-73) H Lymphocytes (%) (Auto) 12 % (24-48) L Monocytes (%) (Auto) 6 % (0-9) Eosinophils (%) (Auto) 1 % (0-3) Basophils (%) (Auto) 0 % (0-3) Neutrophils # (Auto) 11.0 x10^3uL (1.8-7.7) H Lymphocytes # (Auto) 1.7 x10^3/uL (1.0-4.8) Monocytes # (Auto) 0.8 x10^3/uL (0.0-1.1) Eosinophils # (Auto) 0.1 x10^3/uL (0.0-0.7) Basophils # (Auto) 0.1 x10^3/uL (0.0-0.2) Sodium Level 137 mmol/L (136-145) Potassium Level 3.8 mmol/L (3.5-5.1) Chloride Level 101 mmol/L (98-107) Carbon Dioxide Level 28 mmol/L (21-32) Anion Gap 8 (6-14) Blood Urea Nitrogen 28 mg/dL (7-20) H Creatinine 0.7 mg/dL (0.6-1.0) Estimated GFR (Cockcroft-Gault) 83.7 BUN/Creatinine Ratio 40 (6-20) H Glucose Level 113 mg/dL (70-99) H Calcium Level 9.1 mg/dL (8.5-10.1) Total Bilirubin 0.8 mg/dL (0.2-1.0) Aspartate Amino Transferase (AST) 13 U/L (15-37) L Alanine Aminotransferase (ALT) 24 U/L (14-59) Alkaline Phosphatase 91 U/L (46-116) Total Protein 7.3 g/dL (6.4-8.2) Albumin 3.7 g/dL (3.4-5.0) Albumin/Globulin Ratio 1.0 (1.0-1.7) Lipase 123 U/L (73-393) (GITA DICKINSON APRN) EKG EKG [] (GITA DICKINSON APRN) EKG My interpretation EKG shows a sinus rhythm at 82 bpm. Does have occasional atrial premature complex complex. No findings acute STEMI of contralateral changes. (KENNEY MCCULLOUGH MD) Radiology/Procedures Radiology/Procedures [] (GITA DICKINSON APRN) Radiology/Procedures [address] [address] IMAGING REPORT Signed PATIENT: RAUL KNWOLES ACCOUNT: [id number] : 1955 LOCATION: ER AGE: 66 SEX: F EXAM STATUS: REG ER ORD. PHYSICIAN: KENNEY MCCULLOUGH MD REASON: Acute abdomen pain PROCEDURE: ACUTE ABDOMEN SERIES PA chest and AP upright supine abdomen x-rays HISTORY: Abdominal pain. FINDINGS: Heart and mediastinum unremarkable. No pulmonary opacities or pleural effusions. No pneumoperitoneum. Indeterminate pelvic calcifications statistically most likely phleboliths although urinary calculi cannot be excluded. Mild lumbar scoliosis. There is mild stool within the colon. There is mild gas distention of the large and small bowel. No dilated bowel loops or abnormal air-fluid levels to suggest ileus or obstruction. IMPRESSION: No bowel obstruction evident. No acute process in the chest. Electronically signed by: Taras Duff MD (02/07/2021 11:14 PM) [facility] DICTATED AND SIGNED BY: TARAS DUFF MD DATE: 02/07/212311 CC: KENNEY MCCULLOUGH MD; PCP,NO ~MTH0 [address] [address] IMAGING REPORT Signed PATIENT: RAUL KNOWLES ACCOUNT: [id number] : 1955 LOCATION: ER AGE: 66 SEX: F EXAM STATUS: REG ER ORD. PHYSICIAN: GITA DICKINSON APRN REASON: ABDOMINAL HERNIA PAIN, OMNI 300, 75ml & OMNI 240, 30ml PROCEDURE: CT ABD PELV W/ORAL&IV CONTRAST CT abdomen and pelvis with contrast PQRS statement: CT scans at this facility use dose reduction including either automated exposure control, iterative reconstructions, and /or weight based radiation dosing via mA and kV modification when appropriate to reduce radiation dose to as low as reasonably achievable. Contrast: 75 mL Omnipaque 300 intravenous contrast. HISTORY: Abdominal hernia, abdominal pain. Abdomen findings: Small sliding hiatal hernia gastroesophageal junction. Mild atelectasis inferior lingula. Lumbar scoliosis, disc bulges and facet spurring. Indeterminate 5 mm hypodense lesion segment 4 the liver image 40 too small to characterize the similar smaller 4 mm hypodensity of the right hepatic lobe image 23, for small incidental liver lesions of this size no further follow-up i s necessary the patient has no history of liver disease or increased risk of neoplasia. Kidneys, adrenal glands, pancreas, spleen and gallbladder are unremarkable. There is an umbilical abdominal wall hernia containing the transverse colon the mouth of the hernia has a diameter of 4.5 cm the hernia sac measures 14 x 8 cm, no obstruction or inflammation of the herniated segment of the bowel evident. No bowel obstruction evident. Appendix is negative. There is sigmoid diverticulosis with a long segment wall thickening and surrounding edema around an inflamed diverticulum along the antimesenteric border likely diverticulitis no pneumoperitoneum or abscess evident. Tortuosity and calcified likely aorta and iliac arteries. No abdominal fluid or fluid collections or adenopathy. Pelvis findings: 2 cm hypodensity of the left adnexa which is adjacent of the inflammatory changes of the sigmoid colon. Uterus, right ovary, bladder, rectum and bones are unremarkable. IMPRESSION: 1. Sigmoid diverticulosis without inflammatory edema surrounding a diverticulum. No pneumoperitoneum evident. 2. Left adnexal 2 cm hypodense lesion surrounded by the inflammatory changes of the sigmoid diverticulitis, this is most likely an ovarian cyst as this appears to be surrounded by ovarian tissue. An abscess related to the diverticulitis is felt to be much less likely. This may be further assessed with pelvic sonog dony. 3. Appendix is negative. 4. Abdominal wall hernia containing yhe transverse colon, no obstruction or inflammation of the herniation evident. 5. Incidental findings as described above.. Electronically signed by: Taras Duff MD (02/08/2021 12:51 AM) [facility] DICTATED AND SIGNED BY: TARAS DUFF MD DATE: 02/08/21 0043 CC: GITA DICKINSON APRN; KENNEY MCCULLOUGH MD; PCP,NO ~MTH0 0 (KENNEY MCCULLOUGH MD) Heart Score C/O Chest Pain: No Risk Factors: Risk Factors: DM, Current or recent (<one month) smoker, HTN, HLP, family history of CAD, obesity. Risk Scores: Risk Factors: DM, Current or recent (<one month) smoker, HTN, HLP, family history of CAD, obesity. (GITA DICKINSON APRN) HEART Score for Chest Pain: HEART Score for Chest Pain Response (Comments) Value History Slighlty/Non-Suspicious 0 ECG Normal 0 Age > 65 2 Risk Factors 1 or 2 Risk Factors 1 Troponin < Normal Limit 0 Total 3 Course & Med Decision Making Course & Med Decision Making Pertinent Labs and Imaging studies reviewed. (See chart for details) 66-year-old female, vital signs reviewed, presents emergency department complaining of hernia pain. Limited physical examination related to patient unwilling to allow full physical examination. Ordered UA, CBC, CMP, lipase, EKG, CT abdomen pelvis with IV contrast Patient has refused CT abdomen pelvis at this time. Discussed patient case with ED attending Dr. Mccullough who has agreed to assume patient care. Dr. Mccullough has assumed patient care at this time (GITA DICKINSON APRN) Course & Med Decision Making Pt. stay on clear fluid diet. Follow up with primary. No solids or milk products. Return if any concerns. At time of discharge patient's umbilicus hernia was easily reducible. Impression: 1. Abdomen Pain 2. Large Umbilicus Hernia 3. Constipation (KENNEY MCCULLOUGH MD) Dragon Disclaimer Dragon Disclaimer This electronic medical record was generated, in whole or in part, using a voice recognition dictation system. (GITA DICKINSON APRN) Departure Departure: Referrals: PCP,NO (PCP) Dragon Disclaimer This chart was dictated in whole or in part using Voice Recognition software in a busy, high-work load, and often noisy Emergency Department environment. It may contain unintended and wholly unrecognized errors or omissions. (KENNEY MCCULLOUGH MD) GITA DICKINSON APRN Feb 07, 2021 21:57 KENNEY MCCULLOUGH MD Feb 08, 2021 00:06
[2021-02-07] MEDS ORDERED: MAGNESIUM HYDROXIDE 2,400 MG/30 ML ORAL.SUSP. PO ONE (22:45)
--- NOTE | 2021-02-07 23:16 | RAD ---
PA chest and AP upright supine abdomen x-rays HISTORY: Abdominal pain. FINDINGS: Heart and mediastinum unremarkable. No pulmonary opacities or pleural effusions. No pneumop eritoneum. Indeterminate pelvic calcifications statistically most likely phleboliths although urinary calculi cannot be excluded. Mild lumbar scoliosis. There is mild stool within the colon. There is mi ld gas distention of the large and small bowel. No dilated bowel loops or abnormal air-fluid levels t o suggest ileus or obstruction. IMPRESSION: No bowel obstruction evident. No acute process in the chest. Electronically signed by: Júnior Duff MD (02/07/2021 11:14 PM) [facility]
[2021-02-07] MEDS ORDERED: IOHEXOL 240 MG/ML 50ML VIAL. PO ONE (23:30)
--- NOTE | 2021-02-08 00:53 | RAD ---
CT abdomen and pelvis with contrast PQRS statement: CT scans at this facility use dose reduction including either automated exposure cont rol, iterative reconstructions, and /or weight based radiation dosing via mA and kV modification when appropriate to reduce radiation dose to as low as reasonably achievable. Contrast: 75 mL Omnipaque 300 intravenous contrast. HISTORY: Abdominal hernia, abdominal pain. Abdomen findings: Small sliding hiatal hernia gastroesophageal junction. Mild atelectasis inferior li ngula. Lumbar scoliosis, disc bulges and facet spurring. Indeterminate 5 mm hypodense lesion segment 4 the liver image 40 too small to characterize the similar smaller 4 mm hypodensity of the right hepa tic lobe image 23, for small incidental liver lesions of this size no further follow-up is necessary the patient has no history of liver disease or increased risk of neoplasia. Kidneys, adrenal glands, pancreas, spleen and gallbladder are unremarkable. There is an umbilical abdominal wall hernia contai danielle the transverse colon the mouth of the hernia has a diameter of 4.5 cm the hernia sac measures 14 x 8 cm, no obstruction or inflammation of the herniated segment of the bowel evident. No bowel obstr uction evident. Appendix is negative. There is sigmoid diverticulosis with a long segment wall thicke danielle and surrounding edema around an inflamed diverticulum along the antimesenteric border likely div erticulitis no pneumoperitoneum or abscess evident. Tortuosity and calcified likely aorta and iliac a rteries. No abdominal fluid or fluid collections or adenopathy. Pelvis findings: 2 cm hypodensity of the left adnexa which is adjacent of the inflammatory changes of the sigmoid colon. Uterus, right ovary, bladder, rectum and bones are unremarkable. IMPRESSION: 1. Sigmoid diverticulosis without inflammatory edema surrounding a diverticulum. No pneumoperitoneum evident. 2. Left adnexal 2 cm hypodense lesion surrounded by the inflammatory changes of the sigmoid diverticu litis, this is most likely an ovarian cyst as this appears to be surrounded by ovarian tissue. An abs cess related to the diverticulitis is felt to be much less likely. This may be further assessed with pelvic sonography. 3. Appendix is negative. 4. Abdominal wall hernia containing yhe transverse colon, no obstruction or inflammation of the herni ation evident. 5. Incidental findings as described above.. Electronically signed by: Júnior Duff MD (02/08/2021 12:51 AM) [facility]
--- NOTE | 2021-02-08 01:53 | EKG ---
[address] [address] Test Date: 2021-02-07 Test Time: 22:47:27 Pat Name: RAUL KNOWLES Department: Room: Gender: F Bioassayist: ESTHER : 1955 Requested By: GITA DICKINSON Order Number: [id number] Reading MD: Measurements Intervals Bishop Rate: 82 P: 59 TN: 124 QRS: 49 QRSD: 80 T: 40 QT: 382 QTc: 449 Interpretive Statements SINUS RHYTHM ATRIAL PREMATURE COMPLEX(ES) NO SPECIFIC ECG ABNORMALITIES RI6.02 No previous ECG available for comparison
== END 2021-02-08 02:04 | disposition home or self-care (01) ==
LOC: ER 19:55
DX: K42.9 Umbilical hernia without obstruction or gangrene (principal); K59.00 Constipation, unspecified; J44.9 Chronic obstructive pulmonary disease, unspecified; E11.9 Type 2 diabetes mellitus without complications; K21.9 Gastro-esophageal reflux disease without esophagitis; I10 Essential (primary) hypertension; I50.9 Heart failure, unspecified; Z88.0 Allergy status to penicillin
CPT/HCPCS: 36415; 74022; 74177; 80053; 81001; 82150; 83690; 85025; 93005; 99285; Q9966; Q9967

== ENCOUNTER 2021-05-17 16:51 | Emergency (ER) | payer OTHER ==
[~2021-05-17] VITALS: Ht 152.4 cm; Wt 75.0 kg
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
[2021-05-17] MEDS ORDERED: CLINDAMYCIN HCL 150 MG CAPSULE PO ONE (18:15)
[2021-05-17 18:19] LABS: BILIRUBIN,URINE NEG (NEG); CLARITY,URINE CLOUDY; COLOR,URINE YELLOW; GLUCOSE,URINE NEG (NEG); NITRITE,URINE NEG (NEG); UROBILINOGEN,URINE 0.2 mg/dL (0.2 mg/dL)
[2021-05-17] MEDS ORDERED: CLIN150C15 PO (18:22)
[2021-05-17] MEDS ORDERED: ESOM40CA PO (18:22)
[2021-05-17 18:26] LABS: BACTERIA,URINE FEW /HPF (0-FEW); RBC,URINE OCC /HPF (0-2); SQUAMOUS EPITHELIAL CELL,UR OCC /LPF; WBC,URINE OCC /HPF (0-4)
[2021-05-17 20:00] VITALS: BP 136/88
--- NOTE | 2021-05-17 23:06 | RAD ---
Exam Date: 05/17/2021 6:18 PM XR FOOT_RIGHT 3 VIEWS Indication: Reason: pain with walking, r foot, MID FOOT PAIN / Spl. Instructions: / History: . FINDINGS/ IMPRESSION: Evaluation is limited by suboptimal positioning, particularly on the oblique view. No acute fracture or dislocation. Mild degenerative changes are noted. Alignment is maintained. The soft tissues are within normal limits. Electronically signed by: Prasad Avila MD (05/17/2021 11:03 PM) [facility]
== END 2021-05-17 20:00 | disposition home or self-care (01) ==
LOC: ER 16:51
DX: K08.89 Other specified disorders of teeth and supporting structures (principal); R35.0 Frequency of micturition; R39.15 Urgency of urination; M79.671 Pain in right foot; I25.10 Atherosclerotic heart disease of native coronary artery without angina pectoris; I50.9 Heart failure, unspecified; J44.9 Chronic obstructive pulmonary disease, unspecified; K21.9 Gastro-esophageal reflux disease without esophagitis; Z59.0 Homelessness; Z88.0 Allergy status to penicillin
CPT/HCPCS: 73630; 81001; 99284

== ENCOUNTER 2021-11-16 11:25 | Emergency (ER) | payer OTHER ==
[~2021-11-16] VITALS: Ht 152.4 cm; Wt 75.0 kg
[~2021-11-16 11:25] MED LIST changes: +CLIN-95 PO; +CLIN150C16 PO; -CLIN300C9 PO; +ESOM40CA PO
[2021-11-16 12:35] VITALS: BP 136/88
[2021-11-16 14:32] LABS: BASO % 0 % (0-3); EOS % 0 % (0-3); HEMATOCRIT 37.8 % (36.0-47.0); HEMOGLOBIN 12.3 g/dL (12.0-15.5); LYMPH # 1.1 x10^3/uL (1.0-4.8); LYMPH % 7 % (24-48); MEAN CORPUSCULAR HEMOGLOBIN 26 pg (25-35); MEAN CORPUSCULAR HGB CONC 32 g/dL (31-37); MEAN CORPUSCULAR VOLUME 82 fL (79-100); MONO # 0.8 x10^3/uL (0.0-1.1); MONO % 5 % (0-9); NEUT # 13.6 x10^3uL (1.8-7.7); NEUT % 88 % (31-73); PLATELET COUNT 259 x10^3/uL (140-400); RED BLOOD COUNT 4.64 x10^6/uL (3.50-5.40); RED CELL DISTRIBUTION WIDTH 14.3 % (11.5-14.5); WHITE BLOOD COUNT 15.5 x10^3/uL (4.0-11.0)
[2021-11-16 14:36] LABS: CALCIUM 8.7 mg/dL (8.5-10.1); CREATININE 0.8 mg/dL (0.6-1.0); GFR 71.8; POTASSIUM 3.7 mmol/L (3.5-5.1)
[2021-11-16 14:42] LABS: ALBUMIN 3.7 g/dL (3.4-5.0); ALBUMIN/GLOBULIN RATIO 0.9 (1.0-1.7); TOTAL BILIRUBIN 0.7 mg/dL (0.2-1.0); TOTAL PROTEIN 7.6 g/dL (6.4-8.2)
--- NOTE | 2021-11-16 14:49 | RAD ---
XR CHEST 1V History: Shortness of breath, sick as above. Comparison: Chest x-ray 11/29/2019. Technique: Portable AP radiograph of the chest. Findings: The lungs are adequately inflated. There is subtle airspace opacities in the bilateral lungs greatest at the lingula and right lower lung. No pleural effusion or pneumothorax. Cardiac mediastinal silhou ette and pulmonary vasculature are within normal limits. Osseous structures and soft tissues are unre markable. Impression: 1. Subtle bilateral airspace opacities concerning for possible multifocal or atypical infection. Electronically signed by: Jude Kirby MD (11/16/2021 2:46 PM) [facility]
[2021-11-16 15:19] LABS: % BANDS 2 % (0-9); % LYMPHS 7 % (24-48); % MONOS 5 % (0-10); % SEGS 86 % (35-66); PLT ESTIMATE ADEQUATE (ADEQUATE)
[2021-11-16 15:27] LABS: INFLUENZA A PATIENT NEGATIVE (NEGATIVE); INFLUENZA B PATIENT NEGATIVE (NEGATIVE)
[2021-11-16] MEDS ORDERED: AZIT250T6 PO (15:27)
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
[2021-11-16 15:56] LABS: AMPHETAMINE/METHAMPHETAMINE NEG (NEG); BARBITURATES NEG (NEG); BENZODIAZEPINES NEG (NEG); CANNABINOIDS NEG (NEG); COCAINE NEG (NEG); METHADONE NEG (NEG); OPIATES NEG (NEG); PHENCYCLIDINE NEG (NEG)
[2021-11-16 16:08] LABS: BACTERIA,URINE 0 /HPF (0-FEW); BILIRUBIN,URINE NEG (NEG); CLARITY,URINE CLEAR; COLOR,URINE YELLOW; GLUCOSE,URINE NEG (NEG); NITRITE,URINE NEG (NEG); RBC,URINE 0 /HPF (0-2); SQUAMOUS EPITHELIAL CELL,UR FEW /LPF; UROBILINOGEN,URINE 0.2 mg/dL (0.2 mg/dL); WBC,URINE 0 /HPF (0-4)
== END 2021-11-16 15:30 | disposition home or self-care (01) ==
LOC: ER 11:25
DX: J18.9 Pneumonia, unspecified organism (principal); J44.9 Chronic obstructive pulmonary disease, unspecified; I50.9 Heart failure, unspecified; Z20.822 Contact with and (suspected) exposure to COVID-19; Z88.0 Allergy status to penicillin
CPT/HCPCS: 36415; 71045; 80053; 80307; 81001; 85007; 85025; 87426; 87804; 99284; C9803; U0003

== ENCOUNTER 2021-11-28 19:21 | Emergency (ER) | payer OTHER ==
[~2021-11-28] VITALS: Ht 152.4 cm; Wt 69.8 kg
[~2021-11-28 19:21] MED LIST changes: +AZIT250T6 PO
[2021-11-28] MEDS ORDERED: ONDANSETRON ODT 4 MG TAB.RAPDIS PO ONE (20:30)
--- NOTE | 2021-11-28 21:43 | PHYS DOC ---
Past History Past Medical History: Bronchitis, CAD, CHF, COPD, Renal Disease Additional Past Medical Histor: UMBILICAL HERNIA (NICOLE OVERTON [employer] CUT[employer] MACHINE) Past Surgical History: Other Additional Past Surgical Histo: RIGHT KNEE (NICOLE OVERTON [employer] MACHINE) Smoking: Non-smoker Alcohol Use: None Drug Use: None (NICOLE OVERTON [employer] MACHINE) Adult General Chief Complaint Chief Complaint: ABDOMINAL PAIN HPI HPI Patient is a 66-year-old female patient with history of COPD, CHF, kidney disease, CAD, presenting today complaining of a sharp 7 out of 10 intermittent umbilical hernia pain, symptoms of been going on for 2 months with associated intermittent episodes of nausea and vomiting. Patient states she has had this hernia for 5 years. Denies any fever. Denies any hematemesis, denies any diarrhea. She states she is currently homeless and living conditions at the homeless [facility] "pathetic. (NICOLE OVERTON [employer] MACHINE) Review of Systems Review of Systems Constitutional: Denies fever or chills [] Eyes: Denies change in visual acuity, redness, or eye pain [] HENT: Denies nasal congestion or sore throat [] Respiratory: Denies cough or shortness of breath [] Cardiovascular: No additional information not addressed in HPI [] GI: Reports abdominal pain with nausea and vomiting, denies bloody stools or diarrhea [] : Denies dysuria or hematuria [] Musculoskeletal: Denies back pain or joint pain [] Integument: Denies rash or skin lesions [] Neurologic: Denies headache, focal weakness or sensory changes [] All other systems were reviewed and found to be within normal limits, except as documented in this note. (NICOLE OVERTON [employer]ACHINE) Current Medications Current Medications Current Medications Medications (Trade) Dose Ordered Sig/Segundo Start Time Stop Time Status Last Admin Dose Admin Ondansetron HCl (Zofran Odt) 4 mg 1X ONCE 11/28/21 20:30 11/28/21 20:31 DC 11/28/21 20:38 4 MG (BROOKLYNNNICOLE [employer] MACHINE) Allergies Allergies Allergies Coded Allergies Type Severity Reaction Last Updated Verified penicillin G Allergy Intermediate 02/04/21 Yes (JONELLEDhruvNICOLE [employer] MACHINE) Physical Exam Physical Exam Constitutional: Well developed, well nourished, no acute distress, non-toxic appearance. [] HENT: Normocephalic, atraumatic, bilateral external ears normal, oropharynx moist, no oral exudates, nose normal. [] Eyes: PERRLA, EOMI, conjunctiva normal, no discharge. [] Neck: Normal range of motion, no tenderness, supple, no stridor. [] Cardiovascular:Heart rate regular rhythm, no murmur [] Lungs & Thorax: Bilateral breath sounds clear to auscultation [] Abdomen: Reducible large periumbilical hernia noted, bowel sounds normal, soft, no tenderness, no masses, no pulsatile masses. [] Skin: Warm, dry, no erythema, no rash. [] Back: No tenderness, no CVA tenderness. [] Extremities: No tenderness, no cyanosis, no clubbing, ROM intact, no edema. [] Neurologic: Alert and oriented X 3, normal motor function, normal sensory function, no focal deficits noted. [] Psychologic: Flat affect (NICOLE OVERTON DRAP[employer] CUTTER MACHINE) Current Patient Data Vital Signs Vital Signs Date Time Temp Pulse Resp B/P (MAP) Pulse Ox O2 Delivery O2 Flow Rate FiO2 11/28/21 20:05 98.0 78 20 206/95 (132) 95 Room Air (NICOLE OVERTON DRAP[employer] CUTTER MACHINE) EKG EKG [] [facility]) Radiology/Procedures Radiology/Procedures []PROCEDURE: CT ABDOMEN PELVIS WO CONTRAST Exam: CT of abdomen and pelvis without contrast INDICATION: Abdominal pain, history of hernia TECHNIQUE: Sequential axial images through the abdomen and pelvis obtained without IV contrast. Sagittal and coronal reformatted images were reconstructed from the axial data and reviewed. Exposure: One or more of the following in the visualized dose reduction techniques were utilized for this examination: 1. Automated exposure control 2. Adjustment of the MA and/or KV according to patient size 3. Use of iterative of reconstructive technique Comparisons: 02/07/2021 FINDINGS: Heart size is normal. No pericardial effusion. Visualized lung bases are clear. No pleural effusion. Evaluation of solid organs is limited secondary to noncontrast technique. Liver, spleen, pancreas, gallbladder and adrenals are unremarkable. No perinephric inflammation or hydronephrosis. No renal or ureteral calculi are identified. Bladder is partially distended and not well evaluated. Uterus not enlarged. No abnormal adnexal mass. Moderate amount stool noted in the colon. Appendix is normal. Small bowel is unremarkable. No free intra-abdominal air or fluid. No obstruction. Abdominal aorta has normal course and caliber. No enlarged intra-abdominal lymph nodes are identified. No suspicious osseous lesions or acute fractures. Large ventral hernia which contains colon. IMPRESSION: Large ventral/periumbilical hernia containing a large segment of transverse colon. No evidence for obstruction. Electronically signed by: Anyi Landry MD (11/28/2021 10:23 PM) [facility] DICTATED AND SIGNED BY: ANYI LANDRY MD DATE: 11/28/212219 CC: BARBARA CASILLAS MD; EMERGENCY,DEPARTMENT; NICOLE OVERTON APRN ~MTH0 0 (NICOLE OVERTON APRN) Heart Score C/O Chest Pain: N/A Risk Factors: Risk Factors: DM, Current or recent (<one month) smoker, HTN, HLP, family history of CAD, obesity. Risk Scores: Risk Factors: DM, Current or recent (<one month) smoker, HTN, HLP, family history of CAD, obesity. (NICOLE OVERTON APRN) Course & Med Decision Making Course & Med Decision Making Pertinent Labs and Imaging studies reviewed. (See chart for details) This is a 66-year-old female patient presenting to the ED today complaining of umbilical hernia pain, symptoms began 2 months ago but she has had a hernia for 5 years. She is currently in a homeless fdc and not happy about the homeless fdc CT of the abdomen and pelvis noted for large ventral/periumbilical hernia containing a large segment of transverse colon. No evidence for obstruction. This is a reducible hernia Blood pressure was 206/95 with a heart rate of 78, she states he has history of hypertension and her PCP will not put her on any blood pressure medicine. She has no headache, no chest pain, no shortness of breath patient was discharged home. Follow-up with general surgeon. Follow-up with PCP for blood pressure management. (NICOLE OVERTON APRN) Course & Med Decision Making Did not see or evaluate patient. Did not discuss patient with EMBEDDED SOFTWARE PROGRAMMER. Agree with EMBEDDED SOFTWARE PROGRAMMER's work-up and disposition per note (LUCY SULLIVAN MD) Dragon Disclaimer Dragon Disclaimer This electronic medical record was generated, in whole or in part, using a voice recognition dictation system. (NICOLE OVERTON APRN) Departure Departure: Impression: Primary Impression: Ventral hernia Additional Impressions: Abdominal pain High blood pressure Disposition: HOME / SELF CARE / HOMELESS Condition: STABLE Referrals: BARBARA CASILLAS MD (PCP) Follow-up next week MAEGAN TAI MD follow up next week Patient Instructions: Hernia, Hypertension Additional Instructions: You were evaluated in the emergency room and noted to have a large ventral/periumbilical hernia that is not strangulated. Please follow-up with a general surgeon for this. Your blood pressure is running high. Follow-up with the primary care doctor for this. Scripts Omeprazole (OMEPRAZOLE) 20 Mg Tablet.dr 1 TAB PO DAILY, #90 TAB 1 Refill Prov: NICOLE OVERTON RIP 11/28/21 Ondansetron (ONDANSETRON ODT) 4 Mg Tab.rapdis 1 TAB PO PRN Q6-8HRS, #16 TAB Prov: CHIQUIMARTÍNNICOLE Zafar APRN 11/28/21 Problem Qualifiers Primary Impression: Ventral hernia Obstruction and gangrene presence: without obstruction or gangrene Qualified Codes: K43.9 - Ventral hernia without obstruction or gangrene Additional Impressions: Abdominal pain Abdominal location: periumbilical Qualified Codes: R10.33 - Periumbilical pain High blood pressure Hypertension type: unspecified Qualified Codes: I10 - Essential (primary) hypertension BROOKLYNNNICOLE [facility] ERWIN Nov 28, 2021 21:43 LUCY SULLIVAN MD Nov 28, 2021 22:47
[2021-11-28 22:11] VITALS: BP 173/100
[2021-11-28] MEDS ORDERED: FAMOTIDINE 20 MG TABLET PO ONE (22:15)
--- NOTE | 2021-11-28 22:26 | RAD ---
Exam: CT of abdomen and pelvis without contrast INDICATION: Abdominal pain, history of hernia TECHNIQUE: Sequential axial images through the abdomen and pelvis obtained without IV contrast. Sagit tree and coronal reformatted images were reconstructed from the axial data and reviewed. Exposure: One or more of the following in the visualized dose reduction techniques were utilized for this examination: 1. Automated exposure control 2. Adjustment of the MA and/or KV according to patient size 3. Use of iterative of reconstructive technique Comparisons: 02/07/2021 FINDINGS: Heart size is normal. No pericardial effusion. Visualized lung bases are clear. No pleural effusion. Evaluation of solid organs is limited secondary to noncontrast technique. Liver, spleen, pancreas, gallbladder and adrenals are unremarkable. No perinephric inflammation or hydronephrosis. No renal or ureteral calculi are identified. Bladder is partially distended and not well evaluated. Uterus not enlarged. No abnormal adnexal mass. Moderate amount stool noted in the colon. Appendix is normal. Small bowel is unremarkable. No free in tra-abdominal air or fluid. No obstruction. Abdominal aorta has normal course and caliber. No enlarged intra-abdominal lymph nodes are identified. No suspicious osseous lesions or acute fractures. Large ventral hernia which contains colon. IMPRESSION: Large ventral/periumbilical hernia containing a large segment of transverse colon. No evidence for ob struction. Electronically signed by: Anyi Antonio MD (11/28/2021 10:23 PM) [facility]
[2021-11-28] MEDS ORDERED: OMEP20TA8 PO (22:38)
[2021-11-28] MEDS ORDERED: ONDA4TAB12 PO (22:38)
[2021-11-28] MEDS ORDERED: HYDROcodone/APAP 5/325MG 1 TAB TABLET PO ONE (22:45)
== END 2021-11-28 22:45 | disposition home or self-care (01) ==
LOC: ER 19:21
DX: K43.9 Ventral hernia without obstruction or gangrene (principal); I13.0 Hypertensive heart and chronic kidney disease with heart failure and stage 1 through stage 4 chronic kidney disease, or unspecified chronic kidney disease; N18.9 Chronic kidney disease, unspecified; I50.9 Heart failure, unspecified; J44.9 Chronic obstructive pulmonary disease, unspecified; I25.10 Atherosclerotic heart disease of native coronary artery without angina pectoris; Z88.0 Allergy status to penicillin
CPT/HCPCS: 74176; 99284; Q0162

== ENCOUNTER 2022-02-15 01:49 | Emergency (ER) | payer OTHER ==
[~2022-02-15] VITALS: Ht 154.9 cm; Wt 63.8 kg
[~2022-02-15 01:49] MED LIST changes: +OMEP20TA8 PO; +ONDA4TAB12 PO
[2022-02-15 01:52] VITALS: BP 157/93
--- NOTE | 2022-02-15 02:06 | EKG ---
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
--- NOTE | 2022-02-15 02:07 | PHYS DOC ---
Past History Past Medical History: Bronchitis, CAD, CHF, COPD, Renal Disease Additional Past Medical Histor: UMBILICAL HERNIA Past Surgical History: Other Additional Past Surgical Histo: knee surgery 1 yr ago Smoking: Non-smoker Alcohol Use: None Drug Use: None General Adult EDM: Chief Complaint: CHEST PAIN HPI: HPI: 67-year-old female presents via EMS with chest pain. Patient tells me that she is homeless. She started to have chest pain 1 hour prior to arrival. She was stuck outside because care home kicked her out for the night. She states that she was few minutes late change in close and they told her she cannot come in. She describes the chest pain as a central pressure. She has no cardiac or lung history. Denies fever or chills. No shortness of breath or diaphoresis. Review of Systems: Review of Systems: Constitutional: Denies fever or chills Eyes: Denies change in visual acuity HENT: Denies nasal congestion or sore throat Respiratory: Denies cough or shortness of breath Cardiovascular: Chest pain GI: Denies abdominal pain, nausea, vomiting, bloody stools or diarrhea : Denies dysuria Musculoskeletal: Denies back pain or joint pain Integument: Denies rash Neurologic: Denies headache, focal weakness or sensory changes Endocrine: Denies polyuria or polydipsia Lymphatic: Denies swollen glands Psychiatric: Denies depression or anxiety Allergies: Allergies: Allergies Coded Allergies Type Severity Reaction Last Updated Verified penicillin G Allergy Intermediate 02/04/21 Yes Physical Exam: PE: Constitutional: Well developed, well nourished, no acute distress, non-toxic appearance. [] HENT: Normocephalic, atraumatic, bilateral external ears normal, oropharynx moist, no oral exudates, nose normal. [] Eyes: PERRLA, EOMI, conjunctiva normal, no discharge. [] Neck: Normal range of motion, no tenderness, supple, no stridor. [] Cardiovascular: Heart rate 65, regular rhythm, no murmur [] Lungs & Thorax: Bilateral breath sounds clear to auscultation [] Abdomen: Bowel sounds normal, soft, no tenderness, no masses, no pulsatile masses. [] Skin: Warm, dry, no erythema, no rash. [] Back: No tenderness, no CVA tenderness. [] Extremities: No tenderness, no cyanosis, no clubbing, ROM intact, no edema. [] Neurologic: Alert and oriented X 3, normal motor function, normal sensory function, no focal deficits noted. [] Psychologic: Affect normal, judgement normal, mood normal. [] Current Patient Data: Vital Signs: Vital Signs Date Time Temp Pulse Resp B/P (MAP) Pulse Ox O2 Delivery O2 Flow Rate FiO2 02/15/22 01:52 70 18 157/93 (114) 97 Room Air EKG: EKG: Sinus rhythm, rate 65, normal axis, no ST elevation or depression. [] Radiology/Procedures: Radiology/Procedures: [] Heart Score: C/O Chest Pain: Yes HEART Score for Chest Pain: HEART Score for Chest Pain Response (Comments) Value History Slighlty/Non-Suspicious 0 ECG Normal 0 Age > 65 2 Risk Factors 1 or 2 Risk Factors 1 Total 3 Risk Factors: Risk Factors: DM, Current or recent (<one month) smoker, HTN, HLP, family history of CAD, obesity. Risk Scores: Score 0 - 3: 2.5% MACE over next 6 weeks - Discharge Home Score 4 - 6: 20.3% MACE over next 6 weeks - Admit for Clinical Observation Score 7 - 10: 72.7% MACE over next 6 weeks - Early Invasive Strategies Course & Med Decision Making: Course & Med Decision Making Pertinent Labs and Imaging studies reviewed. (See chart for details) The patient's EKG is unremarkable. Her labs are unremarkable. Her troponin is negative. Her chest x-ray shows some nonspecific interstitial does show prominence. Her labs and vital signs do not indicate significant abnormality of the lungs. She is stable for discharge at this time. [] Dragon Disclaimer: Dragon Disclaimer: This electronic medical record was generated, in whole or in part, using a voice recognition dictation system. Departure Departure: Impression: Primary Impression: Chest pain Disposition: HOME / SELF CARE / HOMELESS Condition: STABLE Referrals: BARBARA CASILLAS MD (PCP) Patient Instructions: Chest Pain (Nonspecific), [id number] HA MINER DO Feb 15, 2022 02:07
[2022-02-15 02:42] LABS: BASO % 0 % (0-3); EOS # 0.2 x10^3/uL (0.0-0.7); EOS % 3 % (0-3); HEMATOCRIT 37.7 % (36.0-47.0); HEMOGLOBIN 12.2 g/dL (12.0-15.5); LYMPH # 1.8 x10^3/uL (1.0-4.8); LYMPH % 27 % (24-48); MEAN CORPUSCULAR HEMOGLOBIN 27 pg (25-35); MEAN CORPUSCULAR HGB CONC 33 g/dL (31-37); MEAN CORPUSCULAR VOLUME 82 fL (79-100); MONO # 0.6 x10^3/uL (0.0-1.1); MONO % 8 % (0-9); NEUT # 4.2 x10^3uL (1.8-7.7); NEUT % 61 % (31-73); PLATELET COUNT 292 x10^3/uL (140-400); RED BLOOD COUNT 4.61 x10^6/uL (3.50-5.40); RED CELL DISTRIBUTION WIDTH 14.7 % (11.5-14.5); WHITE BLOOD COUNT 6.8 x10^3/uL (4.0-11.0)
[2022-02-15 02:52] LABS: CALCIUM 9.1 mg/dL (8.5-10.1); CREATININE 0.4 mg/dL (0.6-1.0); GFR 159.2; POTASSIUM 4.4 mmol/L (3.5-5.1)
[2022-02-15 02:58] LABS: ALBUMIN 3.7 g/dL (3.4-5.0); ALBUMIN/GLOBULIN RATIO 1.2 (1.0-1.7); TOTAL BILIRUBIN 0.6 mg/dL (0.2-1.0); TOTAL PROTEIN 6.8 g/dL (6.4-8.2)
--- NOTE | 2022-02-15 03:15 | RAD ---
EXAMINATION: XR CHEST 1V CLINICAL HISTORY: Chest pain. EXAM DATE/TIME: 02/15/2022 2:45 AM COMPARISON: 11/16/2021 FINDINGS: Lines, Tubes, and Devices: None. Cardiomediastinal Silhouette: Normal heart size. Aortic atherosclerotic calcification. Lungs and Pleura: No evidence of focal airspace consolidation or pleural effusion. Nonspecific inters titial prominence, increased from prior study and may be related to edema and/or atypical infection. Bones and Soft Tissues: No acute osseous abnormality. IMPRESSION: Nonspecific interstitial prominence, increased from prior study. Possibly related to mild edema and/o r atypical infection. Electronically signed by: Alberto Breen DO (02/15/2022 3:12 AM) [place]
== END 2022-02-15 06:08 | disposition home or self-care (01) ==
LOC: ER 01:49
DX: R07.89 Other chest pain (principal); I25.10 Atherosclerotic heart disease of native coronary artery without angina pectoris; I50.9 Heart failure, unspecified; J44.9 Chronic obstructive pulmonary disease, unspecified; Z88.0 Allergy status to penicillin
CPT/HCPCS: 36415; 71045; 80053; 84484; 85025; 93005; 99285